=== PATIENT | male | born 1985 | race Hispanic/Latino ===

== ENCOUNTER 2018-05-12 14:47 | Emergency (ER) | payer SELFPAY ==
[2018-05-12 14:47] VITALS: BMI 19.5
[2018-05-12 14:56] VITALS: RESP 18
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
--- NOTE | 2018-05-12 16:20 | RAD ---
PROCEDURE: Right Hand Radiographs. HISTORY: hand injury, pain COMPARISON: None. FINDINGS: BONES: No acute fracture or destructive bony lesion identified. JOINTS: Normal. No osteoarthritic changes. SOFT TISSUES: Normal. OTHER FINDINGS: None. IMPRESSION: Normal right hand radiographs.
[2018-05-12 17:24] VITALS: BP 116/79; PULSE 78; TEMP 98
[2018-05-12 18:15] VITALS: O2SAT 97
== END 2018-05-12 17:24 | disposition home or self-care (01) ==
LOC: C.ER 14:47
DX: S60.221A Contusion of right hand, initial encounter (principal); S60.511A Abrasion of right hand, initial encounter; Y04.0XXA Assault by unarmed brawl or fight, initial encounter

== ENCOUNTER 2018-07-21 13:08 | Emergency (ER) | payer MEDICAID, OTHER ==
[2018-07-21 13:08] VITALS: BMI 19.5
[2018-07-21 13:16] VITALS: TEMP 98.2
--- NOTE | 2018-07-21 14:15 | C.PDOC ---
History Of Present Illness 33 year old male presents to the ED complaining of right facial swelling for since yesterday but worse today. Denies history of asthma. Denies dental pain, fever, chills, difficulty breathing, or difficulty swallowing. Time Seen by Provider: 07/21/18 14:00 Chief Complaint (Nursing): Allergic Reaction History Per: Patient History/Exam Limitations: no limitations Onset/Duration Of Symptoms: Days (1) Current Symptoms Are (Timing): Still Present Past Medical History Reviewed: Historical Data, Nursing Documentation, Vital Signs Vital Signs: Last Vital Signs Temp 98.2 F 07/21/18 13:14 Pulse 112 H 07/21/18 13:14 Resp 20 07/21/18 13:14 BP 116/77 07/21/18 13:14 Pulse Ox 99 07/21/18 13:14 - Medical History PMH: Asthma, Seizures (most recent seizure 3 years ago, currently not on any meds) Surgical History: No Surg Hx Family History: States: No Known Family Hx - Social History Hx Tobacco Use: Yes Hx Alcohol Use: (unknown) Hx Substance Use: (unknown) - Immunization History Hx Tetanus Toxoid Vaccination: No Hx Influenza Vaccination: No Hx Pneumococcal Vaccination: No Review Of Systems Except As Marked, All Systems Reviewed And Found Negative. Constitutional: Negative for: Fever, Chills ENT: Negative for: Mouth Pain, Throat Pain, Throat Swelling Skin: Positive for: Other (right facial swelling ) Physical Exam - Physical Exam Appears: Non-toxic, No Acute Distress Skin: Warm, Dry, No Rash Head: Swelling (lower facial swelling, non-pitting, nontender, no erythema ) Nose: Normal Oral Mucosa: Moist Tongue: Normal Appearing Lips: Normal Appearing Teeth: Other (poor dentition, old dental fractures to right upper teeth ) Gingiva: Normal Appearing Throat: Normal, No Erythema, No Exudate Neck: Supple Chest: Symmetrical Cardiovascular: Rhythm Regular Respiratory: Normal Breath Sounds, No Rales, No Rhonchi, No Stridor, No Wheezing Neurological/Psych: Oriented x3, Normal Speech Gait: Steady ED Course And Treatment - Laboratory Results Result Diagrams: 07/21/18 14:16 07/21/18 14:16 O2 Sat by Pulse Oximetry: 99 (RA) Pulse Ox Interpretation: Normal - CT Scan/US CT facial/orbits Other Rad Studies (CT/US): Read By Radiologist, Radiology Report Reviewed CT/US Interpretation: Date of service: 07/21/2018. PROCEDURE: CT MAXILLOFACIAL BONES WITH CONTRAST. HISTORY: R FACIAL SWELL RO ABSCESS. COMPARISON: None. TECHNIQUE: Contiguous axial CT images of the maxillofacial bones were obtained following administration of IV contrast. Coronal and sagittal reformats were generated. Intravenous contrast Dose: 100 mL Visipaque 320. Radiation dose: Total exam DLP = 783.5 mGy-cm. This CT exam was performed using one or more of the following dose reduction techniques: Automated exposure control, adjustment of the mA and/or kV according to patient size, and/or use of iterative reconstruction technique. FINDINGS: NASAL BONES: The nasal bones are intact. ORBITS: There is mild right orbital proptosis. The globes are symmetric. There is mild right periorbital soft tissue swelling. No evidence for subperiosteal abscess. PARANASAL SINUSES/ MASTOIDS: There fluid in the right sphenoid chamber. There is mild polypoid mucosal thickening in the frontal, ethmoid and maxillary sinuses, worse in the right maxillary sinus. There is moderate right facial soft tissue swelling and subcutaneous fat stranding. MAXILLA: No acute maxillofacial fracture or bone destruction. MANDIBLE/ TEMPOROMANDIBULAR JOINTS: Unremarkable. SKULL BASE: Unremarkable. TEMPORAL BONES: Middle ears and mastoid grossly unremarkable. OTHER FINDINGS: There is mild reactive enlargement of the right submandibular lymph nodes. IMPRESSION: Right facial cellulitis and mild right periorbital soft tissue swelling. No evidence for drainable abscess or fluid collection. Progress - Re-Evaluation Re-evaluation Note: 07/21/18 17:[address] REPORT REVIEWED. JOLENE MICHEL, REFERRAL DENTAL, SMOKING CESSATION ADVISED - Data Reviewed Data Reviewed: Lab, Diagnostic imaging Medical Decision Making Medical Decision Making: Plan - CT orbits/facials - CMP - CBC - Toradol 30mg IVP - Zosyn 3.375 in NS 100ml IV Advised patient of potential need for transfer if positive facial abscess. Patient voices understanding of plan. Disposition Counseled Patient/Family Regarding: Studies Performed, Diagnosis, Need For Followup, Rx Given, Smoking Cessation - Disposition Referrals: YOUR,DENTIST [Other] Disposition: HOME/ ROUTINE Disposition Time: 17:15 Condition: IMPROVED Prescriptions: Amoxicillin/Clavulanate [Augmentin 875 MG-125 MG] 1 tab PO BID #14 tab Ibuprofen [Motrin] 600 mg PO Q6 #30 tab Instructions: Cellulitis (Skin Infection), Adult (DC), Tooth Decay, Adult (DC) Forms: [employer] ([place]ypriot) - Clinical Impression Clinical Impression: Facial cellulitis, Poor dentition - Scribe Statement The provider has reviewed the documentation as recorded by the Scribe Carissa Bernal All medical record entries made by the Scribe were at my direction and personally dictated by me. I have reviewed the chart and agree that the record accurately reflects my personal performance of the history, physical exam, medical decision making, and the department course for this patient. I have also personally directed, reviewed, and agree with the discharge instructions and disposition.
[2018-07-21] MEDS ORDERED: Piperacillin/Tazobact 3.375 gm 100 ML IV STA (14:16)
[2018-07-21 14:20] LABS: BASO # 0.1 K/uL (0.0-0.2); BASO % 0.5 % (0.0-2.0); EOS # 0.5 K/uL (0.0-0.7); HEMOGLOBIN 13.8 g/dL (12.0-18.0); LYMPH # 2.2 K/uL (1.0-4.3); LYMPH % 12.7 % (20.0-40.0); MEAN CORPUSCULAR HEMOGLOBIN 33.8 pg (27.0-31.0); MEAN CORPUSCULAR HGB CONC 34.8 g/dL (33.0-37.0); MEAN PLATELET VOLUME 6.8 fL (7.2-11.7); MONO % 6.1 % (0.0-10.0); NEUT # 13.2 K/uL (1.8-7.0); NEUT % 77.7 % (50.0-75.0); RBC 4.08 Mil/uL (4.40-5.90); RED CELL DISTRIBUTION WIDTH 12.9 % (11.5-14.5)
[2018-07-21 14:23] LABS: MEAN CELL VOLUME 97.3 fL (80.0-94.0)
[2018-07-21] MEDS ORDERED: Sodium Chloride 0.9% 1,000 ML IV ONE (14:25)
[2018-07-21] MEDS ORDERED: Piperacillin/Tazobact 3.375 gm 100 ML IVPB ONE (14:26)
[2018-07-21 14:32] LABS: ALB/GLOB RATIO 1.6 (1.0-2.1); ALBUMIN 4.8 g/dL (3.5-5.0); ALT/SGPT 48 U/L (21-72); AST/SGOT 41 U/L (17-59); BLOOD UREA NITROGEN 6 mg/dL (9-20); CALCIUM 9.2 mg/dl (8.6-10.4); GFR NON-AFRICAN AMERICAN > 60
[2018-07-21] MEDS ORDERED: Sodium Chloride 0.9% 1,000 ML ONE (14:35)
[2018-07-21] MEDS ORDERED: Iodixanol 320 MG/ML 100 ML BOTTLE IV ONE (15:17)
--- NOTE | 2018-07-21 17:13 | CT ---
Date of service: 07/21/2018 PROCEDURE: CT MAXILLOFACIAL BONES WITH CONTRAST HISTORY: R FACIAL SWELL RO ABSCESS COMPARISON: None. TECHNIQUE: Contiguous axial CT images of the maxillofacial bones were obtained following administration of IV contrast. Coronal and sagittal reformats were generated. Intravenous contrast Dose: 100 mL Visipaque 320 Radiation dose: Total exam DLP = 783.5 mGy-cm. This CT exam was performed using one or more of the following dose reduction techniques: Automated exposure control, adjustment of the mA and/or kV according to patient size, and/or use of iterative reconstruction technique. FINDINGS: NASAL BONES: The nasal bones are intact. ORBITS: There is mild right orbital proptosis. The globes are symmetric. There is mild right periorbital soft tissue swelling. No evidence for subperiosteal abscess. PARANASAL SINUSES/ MASTOIDS: There fluid in the right sphenoid chamber. There is mild polypoid mucosal thickening in the frontal, ethmoid and maxillary sinuses, worse in the right maxillary sinus. There is moderate right facial soft tissue swelling and subcutaneous fat stranding. MAXILLA: No acute maxillofacial fracture or bone destruction. MANDIBLE/ TEMPOROMANDIBULAR JOINTS: Unremarkable. SKULL BASE: Unremarkable. TEMPORAL BONES: Middle ears and mastoid grossly unremarkable. OTHER FINDINGS: There is mild reactive enlargement of the right submandibular lymph nodes. IMPRESSION: Right facial cellulitis and mild right periorbital soft tissue swelling. No evidence for drainable abscess or fluid collection.
[2018-07-21 17:21] VITALS: BP 113/77; PULSE 68; RESP 18
[2018-07-21 17:27] VITALS: O2SAT 99
== END 2018-07-21 17:41 | disposition home or self-care (01) ==
LOC: C.ER 13:08
DX: L03.211 Cellulitis of face (principal); K08.9 Disorder of teeth and supporting structures, unspecified
CPT/HCPCS: 70481; 80053; 85025; 96374; 99284; J1885; J2543; J7030; Q9967

== ENCOUNTER 2018-09-14 13:59 | Emergency (ER) | payer OTHER ==
[2018-09-14 13:59] VITALS: BMI 19.5
[2018-09-14 14:12] VITALS: BP 119/80; PULSE 90; RESP 18; TEMP 99; O2SAT 98
--- NOTE | 2018-09-14 14:30 | C.PDOC ---
History Of Present Illness 33 y/o male pt with hx of seizure and smoking marijuana c/o rash on right side of body for x2 days. Associated sx includes pain. Pt denies fever, chills, weakness, nausea, vomiting, diarrhea, chest pain and SOB. Pt admits to chicken pox as child. Denies every having this rash before. Time Seen by Provider: 09/14/18 14:21 Chief Complaint (Nursing): Abnormal Skin Integrity History Per: Patient History/Exam Limitations: no limitations Onset/Duration Of Symptoms: Days (x2) Current Symptoms Are (Timing): Still Present Location Of Injury: Right: Arm, Back Quality Of Symptoms: Painful, Swollen, Draining Severity: Severe Pain Scale Rating Of: 8 Past Medical History Reviewed: Historical Data, Nursing Documentation, Vital Signs Vital Signs: Last Vital Signs Temp 99.0 F 09/14/18 14:05 Pulse 90 09/14/18 14:05 Resp 18 09/14/18 14:05 BP 119/80 09/14/18 14:05 Pulse Ox 98 09/14/18 14:05 - Medical History PMH: Asthma, Seizures (most recent seizure 3 years ago, currently not on any meds) Family History: States: Unknown Family Hx - Social History Hx Tobacco Use: Yes Hx Alcohol Use: No (unknown) Hx Substance Use: Yes (marijuana) - Immunization History Hx Tetanus Toxoid Vaccination: No Hx Influenza Vaccination: No Hx Pneumococcal Vaccination: No Review Of Systems Constitutional: Negative for: Fever, Chills Cardiovascular: Negative for: Chest Pain Respiratory: Negative for: Shortness of Breath Gastrointestinal: Negative for: Nausea, Vomiting, Diarrhea Musculoskeletal: Positive for: Arm Pain, Back Pain Skin: Positive for: Rash (right side of body) Neurological: Negative for: Weakness Physical Exam - Physical Exam Appears: Non-toxic, No Acute Distress Skin: Rash (Maculopapular rash with vesicles limited to the right chest, upper right arm, axilla, and right side of back) Head: Atraumatic, Normacephalic Eye(s): bilateral: Normal Inspection, PERRL Ear(s): Bilateral: Normal Nose: Normal Oral Mucosa: Moist Throat: Normal, No Erythema, No Exudate Neck: Normal ROM, Supple Cardiovascular: Rhythm Regular Respiratory: Normal Breath Sounds, No Wheezing Gastrointestinal/Abdominal: Soft, No Tenderness Extremity: Normal ROM (x4) Neurological/Psych: Oriented x3, Normal Speech, Normal Cognition, Normal Motor, Normal Sensation Gait: Steady ED Course And Treatment O2 Sat by Pulse Oximetry: 98 (RA) Pulse Ox Interpretation: Normal Medical Decision Making Medical Decision Making: Impression: Shingles Plan: -- valtrex now then tid x 14 days -- follow up with PMD in 1-2 days -- patient verbalized understanding and is in agreement with plan -- patient is stable for discharge Disposition Counseled Patient/Family Regarding: Diagnosis, Need For Followup, Rx Given - Disposition Referrals: [facility] [Outside] Disposition: HOME/ ROUTINE Disposition Time: 15:04 Condition: STABLE Additional Instructions: Start Valtrex 1gm Three times a day Motrin TID prn pain Follow up in Clinic in 1-2 days for further management Return to ED if symptoms worsen Prescriptions: Ibuprofen [Motrin] 600 mg PO TID PRN #30 tab PRN Reason: Pain, Moderate (4-7) Valacyclovir HCl [Valtrex] 1 gm PO TID #41 tablet Instructions: Shingles (DC) Forms: [employer] (Israeli) - Clinical Impression Clinical Impression: Shingles rash - PA / CHIEF LIBRARIAN MUSIC DEPARTMENT / Resident Statement MD/ has reviewed & agrees with the documentation as recorded. - Scribe Statement The provider has reviewed the documentation as recorded by the Johnny Musa Do All medical record entries made by the Scribe were at my direction and personally dictated by me. I have reviewed the chart and agree that the record accurately reflects my personal performance of the history, physical exam, medical decision making, and the department course for this patient. I have also personally directed, reviewed, and agree with the discharge instructions and disposition.
== END 2018-09-14 15:07 | disposition home or self-care (01) ==
LOC: C.ER 13:59
DX: B02.9 Zoster without complications (principal)

== ENCOUNTER 2018-09-15 17:04 | Emergency (ER) | payer OTHER ==
[2018-09-15 17:05] VITALS: BMI 19.5
[2018-09-15 17:13] VITALS: BP 111/74; PULSE 70; RESP 22; TEMP 98.3; O2SAT 96
--- NOTE | 2018-09-15 17:30 | C.PDOC ---
History Of Present Illness 33 y/o male comes in complaining of pain on the right upper chest. Patient was seen and evaluated yesterday for same and diagnosed with herpes zoster virus. Patient has been treated with motrin and benadryl. Reports he has trouble sleeping Time Seen by Provider: 09/15/18 17:25 Chief Complaint (Nursing): Abnormal Skin Integrity History Per: Patient History/Exam Limitations: no limitations Onset/Duration Of Symptoms: Days Current Symptoms Are (Timing): Still Present Past Medical History Reviewed: Historical Data, Nursing Documentation, Vital Signs Vital Signs: Last Vital Signs Temp 98.3 F 09/15/18 17:10 Pulse 70 09/15/18 17:10 Resp 22 09/15/18 17:10 BP 111/74 09/15/18 17:10 Pulse Ox 96 09/15/18 17:10 - Medical History PMH: Asthma, Seizures (most recent seizure 3 years ago, currently not on any meds) Family History: States: No Known Family Hx - Social History Hx Tobacco Use: Yes Hx Alcohol Use: Yes Hx Substance Use: No - Immunization History Hx Tetanus Toxoid Vaccination: No Hx Influenza Vaccination: No Hx Pneumococcal Vaccination: No Review Of Systems Except As Marked, All Systems Reviewed And Found Negative. Constitutional: Negative for: Fever, Chills Gastrointestinal: Negative for: Vomiting Musculoskeletal: Positive for: Other (Pain to right upper chest) Skin: Positive for: Other Physical Exam - Physical Exam Appears: Non-toxic, No Acute Distress Skin: Other (veiscles in the right upper chest T2 dermatome, multiple stages of healing, no surrounding erythema) Head: Atraumatic, Normacephalic Eye(s): bilateral: PERRL, EOMI Oral Mucosa: Moist Neck: Supple Cardiovascular: Rhythm Regular, No Murmur Respiratory: Normal Breath Sounds, No Rales, No Rhonchi, No Wheezing Gastrointestinal/Abdominal: Soft, No Tenderness Extremity: Bilateral: Atraumatic, Normal ROM Neurological/Psych: Oriented x3, Normal Speech ED Course And Treatment O2 Sat by Pulse Oximetry: 96 (RA) Pulse Ox Interpretation: Normal Medical Decision Making Medical Decision Making: Plan: --Ultram --Valtrex R upper chest shingles dx and tx yesterday needs more pain meds healing shingles noted Tramadol Disposition Doctor Will See Patient In The: Office Counseled Patient/Family Regarding: Studies Performed, Diagnosis - Disposition Referrals: [facility] [Outside] [facility] [Outside] [facility] [Outside] [facility] [employer] [facility] [Outside] Disposition: HOME/ ROUTINE Disposition Time: 17:29 Condition: GOOD Additional Instructions: continue motrin 600 mg every 6 hours as needed Tramadol 50 mg (narcotic) 1-2 tabs every 6 hours as needed Outpatient follow-up with Family Practice Clinic as needed. Prescriptions: traMADol [Ultram] 50 mg PO Q6H PRN #20 tab PRN Reason: pain Instructions: Shingles (DC) Forms: [employer] (Faroese) - Clinical Impression Clinical Impression: Acute pain associated with herpes zoster - Scribe Statement The provider has reviewed the documentation as recorded by the Johnny Tobin Provider Attestation: All medical record entries made by the Johnny were at my direction and person ally dictated by me. I have reviewed the chart and agree that the record accurately reflects my personal performance of the history, physical exam, medical decision making, and the department course for this patient. I have also personally directed, reviewed, and agree with the discharge instructions and disposition.
== END 2018-09-15 17:43 | disposition home or self-care (01) ==
LOC: C.ER 17:04
DX: B02.9 Zoster without complications (principal)